=== PATIENT | female | born 1985 | race Caucasian/White ===

== ENCOUNTER → 2025-07-31 | Outpatient (BNVA) | payer BC, SELFPAY | END | disposition home or self-care (01) | PROVIDERS: PCP Internal Medicine; Referring Provider Internal Medicine; Visit Provider Urology | DX: R35.0 Frequency of micturition (principal); R10.20 Pelvic and perineal pain unspecified side; E11.9 Type 2 diabetes mellitus without complications; I10 Essential (primary) hypertension; E03.9 Hypothyroidism, unspecified; E78.5 Hyperlipidemia, unspecified; E66.9 Obesity, unspecified; Z68.34 Body mass index [BMI] 34.0-34.9, adult | CPT/HCPCS: 81003; 99202; G0463 ==

== ENCOUNTER 2025-09-03 06:20 | Day surgery (SDC) | payer BC, SELFPAY ==
--- NOTE | 2025-09-02 06:40 | EKG_ITS ---
[facility] Test Date: 2025-09-02 Pat Name: LEN HARRIS Department: Room: - Gender: Female [employer]: [employer]CKY : 1985 Requested By: Ramiro Reyna Order Number: [id number] Reading MD: Ramiro Reyna Measurements Intervals [place] Rate: 71 P: 44 UT: 148 QRS: 58 QRSD: 93 T: 43 QT: 382 QTc: 418 Interpretive Statements SINUS RHYTHM No previous ECG available for comparison /store/S0/[id number]/ecg/[id number].pdf
[2025-09-02 11:38] VITALS: BMI 32.2
[2025-09-02 12:15] LABS: Basophils # (Auto) 0.1 Thou/mm3 (0.0-0.2); Basophils % (Auto) 1 % (0-2.5); Eosinophils # (Auto) 0.1 Thou/mm3 (0.0-0.5); Eosinophils % (Auto) 2 % (0-10); Hematocrit 32.5 % (36.0-46.0); Hemoglobin 10.4 g/dL (12.0-16.0); Immature Granulocytes Auto 0.02 Thou/mm3 (0.00-0.00); Lymphocytes # (Auto) 2.3 Thou/mm3 (1.0-4.8); Lymphocytes % (Auto) 36 % (10-50); Mean Corpuscular HGB Conc 32.0 g/dl (31.0-37.0); Mean Corpuscular Hemoglobin 26.4 pg (25.0-35.0); Mean Corpuscular Volume 83 fL (80-100); Monocytes # (Auto) 0.5 Thou/mm3 (0.0-0.8); Monocytes % (Auto) 8 % (0-12); Neutrophils # (Auto) 3.4 Thou/mm3 (1.8-7.7); Neutrophils % (Auto) 53 % (37-80); Nucleated Red Blood Cell # 0.00 Thou/mm3 (0.00-0.00); Nucleated Red Blood Cell % 0 /100 WBC (0); Platelet Count 330 Thou/mm3 (140-440); RDW Standard Deviation 47.8 fL (36.4-46.3); Red Blood Count 3.94 Miln/mm3 (4.00-5.20); White Blood Count 6.4 Thou/mm3 (3.6-11.0)
[2025-09-02 12:42] LABS: Alanine Aminotransferase 19 U/L (10-49); Albumin, Serum 5.0 gm/dL (3.5-5.0); Albumin/Globulin Ratio 2.0 (1.2-2.2); Alkaline Phosphatase 58 U/L (46-116); Anion Gap 9 (7-16); Aspartate Amino Transferase 22 U/L (0-34); BUN/Creatinine Ratio 13 Ratio (12-20); Bilirubin,Total 0.5 mg/dL (0.3-1.2); Blood Urea Nitrogen 9 mg/dL (9-23); Calcium 9.2 mg/dL (8.3-10.6); Calcium (Corrected) 9.2 mg/dL (8.5-10.1); Carbon Dioxide 26.3 mMol/L (20.0-31.0); Chloride 106 mMol/L (98-107); Creatinine (Component) 0.7 mg/dL (0.6-1.3); Estimated Creatinine Clearance 128.2 mL/min (>60); Globulin 2.5 gm/dL (2.3-3.5); Glucose 92 mg/dL (74-106); Osmolality,Calculated 279 (275-295); Potassium 3.8 mMol/L (3.4-5.1); Sodium 141 mMol/L (136-145); Total Protein 7.5 gm/dL (5.7-8.2); eGFR > 60 See Note
[2025-09-03] VITALS (7 sets, daily range): BP systolic 113–131; BP diastolic 66–89; PULSE 69–88; RESP 12–18; TEMP 36.1–36.9; O2SAT 95–100; BMI 28.9
--- NOTE | 2025-09-03 09:26 | SUR.PHASEI ---
0939 patient arrived to recovery resting comfortably in [facility], awake and alert talking with staff, breathing unlabored, vital signs stable, denies pain and nausea, 16F ibrahim catheter in place with leg secure; draining to gravity, report received from Bahman LEVINE and Severiano SEAMAN
--- NOTE | 2025-09-03 09:28 | PD.SUROPNT ---
Date of Procedure 09/03/25 Pre Op Diagnosis Chronic pelvic pain syndrome, suprapubic pressure, dysuria without any documented urinary tract infection Post Op Diagnosis Same plus interstitial cystitis plus urethral stenosis Procedure Cystoscopic examination urethral dilation [place] dilation for diagnostic and therapeutic purposes biopsy and fulguration and insertion of Chiu catheter Findings Interstitial cystitis plus urethral stenosis Procedure Description This is 40-year-old female she was seen in urology office she has chronic pelvic pain syndrome. She was recommended cystoscopic examination urethral dilation and [place] dilation for diagnostic and therapeutic purposes possible biopsy and fulguration procedure and complications were discussed with patient in great detail informed consent is obtained Patient was brought to the operating room in a satisfactory condition after appropriate premedication was put on the operating table in a spine position she was appropriately identified by surgeon and operating room staff site scope and indication of the procedure were reconfirmed with the patient next to general anesthesia was given uneventfully patient was positioned in a dorsolithotomy position parts were prepped and draped in the usual sterile fashion 2% lidocaine was instilled into the urethra patient received perioperative antibiotics. 21 López cystoscope was used to do the cystourethroscopy she has tight need the urethra urethral calibration and dilation with the female urethral dilators up to 28 Hebrew was carried out. Examination of the bladder after insertion of the scope was carried out in all the direction no tumor stone or diverticula was identified. Both ureteral orifices were effluxing clear urine. I filled the bladder with 300 cc of water drained it cystoscope was performed again there was evidence of interstitial cystitis biopsy was obtained fulguration was carried out with next instrument was withdrawn gently #16 Chiu catheter was inserted. Patient after having tolerated the procedure well was sent to recovery room in a satisfactory condition to be discharged home full postoperative instructions are given to has been verbally as well as in writing to be followed in urology office Anesthesia GETA Pathology / specimen Other (Bladder biopsy) Estimated Blood Loss 0.5 Condition Stable Disposition PACU Surgeon Felicity Parsons MD Surgical Staff Operation Date: 09/03/25 08:45 <No data on this case meets the specified criteria>
--- NOTE | 2025-09-03 10:28 | SUR.PHASEII ---
1028 Patient meets discharge criteria from recovery, awake and alert, breathing unlabored, vital signs stable, denies pain, drinking 7up; denies nausea, assisted with dressing into her clothing by her , Chiu catheter in place with leg secure; patient and her educated on home care for catheter and how to discontinue tomorrow morning per MD order, both receptive, discharge instructions given to patient and patients , signed discharge instructions. Patient given all her belongings prior to discharge, transported via wheelchair and left in a private vehicle.
== END 2025-09-03 10:28 | disposition home or self-care (01) ==
PROVIDERS: Anesthesiology; PCP Internal Medicine; Referring Provider Urology; Visit Provider Urology
PROC: 0T7B8ZZ Dilation of Bladder, Via Natural or Artificial Opening Endoscopic (ICD-10-PCS; CPT 52281; principal; 2025-09-03 08:30)
DX: N30.10 Interstitial cystitis (chronic) without hematuria (principal); Z01.810 Encounter for preprocedural cardiovascular examination; E11.9 Type 2 diabetes mellitus without complications; E03.9 Hypothyroidism, unspecified; I10 Essential (primary) hypertension; N35.92 Unspecified urethral stricture, female
CPT/HCPCS: 52281; 36415; 80053; 85025; 93005; A4217; A4649; J1100; J1885; J2250; J2405; J2704; J3010